=== PATIENT | male | born 1945 | race Caucasian/White ===

== ENCOUNTER 2021-11-06 10:13 | Observation (INO) | payer OTHER, MEDICARE ==
[2021-11-06] MEDS ORDERED: VANCOMYCIN 1 GM in D5W (PRE-DOCKED) 1,000 MG/250 ML IVPB ONE (11:40)
[2021-11-06] MEDS ORDERED: VANCOMYCIN 1 GRAM (PRE-DOCKED) 1,000 MG/250 ML BAG IVPB ONE ×2 (12:06→12:21)
[2021-11-06 12:19] LABS: BASO % 0.5 % (0-2.0); EOS % 1.9 % (0-4.5); HEMATOCRIT 37.6 % (35.4-49); HEMOGLOBIN 12.3 GM/dL (11.7-16.9); LYMPH % 27.9 % (8-40); MCH 29.6 pg (25.7-33.7); MCHC 32.8 g/dl (32.0-35.9); MEAN CELL VOLUME 90.3 fl (80-96); MEAN PLT VOLUME 6.7 fl (7.5-11.1); NEUT % 60.7 % (42.8-82.8); PLATELET COUNT 189 10^3/uL (134-434); RBC 4.16 M/mm3 (4.00-5.60); RDW 14.2 % (11.9-15.9); WHITE BLOOD COUNT 3.9 K/mm3 (4.0-10.0)
[2021-11-06] MEDS ORDERED: CLINDAMYCIN 600MG PREMIX IVPB 600 MG/50 ML BAG IVPB ONE ×3 (12:35→18:13)
[2021-11-06 12:38] LABS: ALBUMIN 3.4 g/dl (3.4-5.0); CALCIUM 8.7 mg/dL (8.5-10.1)
[2021-11-06 12:39] LABS: BLOOD UREA NITROGEN 15.8 mg/dL (7-18)
[2021-11-06 12:42] LABS: CREATININE 0.9 mg/dL (0.55-1.3); TOT PROT 7.3 g/dl (6.4-8.2)
[2021-11-06 12:44] LABS: BILIRUBIN,TOTAL 0.4 mg/dL (0.2-1)
[2021-11-06] MEDS ORDERED: BISACODYL 10 MG SUPP.RECT PR PRN (16:38)
[2021-11-06] MEDS ORDERED: POLYETHYLENE GLYCOL (HEALTHYLAX) 3350 17 GM PACKET PO PRN (16:42)
[2021-11-06] MEDS ORDERED: DOCUSATE SODIUM 100 MG CAPSULE (FP) PO PRN (17:46)
[2021-11-06] MEDS ORDERED: WARFARIN NA 1 MG TABLET ONE (18:13)
[2021-11-06] MEDS: WARFARIN NA 3 MG TABLET PO SCH (19:00)
[2021-11-06] MEDS: CLINDAMYCIN 600MG PREMIX IVPB 600 MG/50 ML BAG IVPB SCH (19:00)
[2021-11-06 20:38] LABS: INR 1.58 (0.83-1.09); PROTHROMBIN TIME (PATIENT) 18.6 SEC (9.7-13.0)
[2021-11-06 21:02] VITALS: BMI 29.3
[2021-11-07] MEDS: CLINDAMYCIN 600MG PREMIX IVPB 600 MG/50 ML BAG IVPB SCH ×3 (02:04→17:08)
[2021-11-07] MEDS ORDERED: MUPIROCIN 2% TOPICAL OINTMENT 22 GM TUBE TP SCH (10:00)
[2021-11-07 10:13] LABS: BASO % 0.4 % (0-2.0); EOS % 3.2 % (0-4.5); HEMATOCRIT 38.7 % (35.4-49); HEMOGLOBIN 12.5 GM/dL (11.7-16.9); LYMPH % 45.1 % (8-40); MCH 29.7 pg (25.7-33.7); MCHC 32.3 g/dl (32.0-35.9); MEAN CELL VOLUME 92.1 fl (80-96); MEAN PLT VOLUME 7.2 fl (7.5-11.1); MONO % 11.4 % (3.8-10.2); NEUT % 39.9 % (42.8-82.8); PLATELET COUNT 172 10^3/uL (134-434); RDW 14.1 % (11.9-15.9); WHITE BLOOD COUNT 3.6 K/mm3 (4.0-10.0)
[2021-11-07 10:19] LABS: INR 1.77 (0.83-1.09); PROTHROMBIN TIME (PATIENT) 19.9 SEC (9.7-13.0)
[2021-11-07 10:36] LABS: CALCIUM 8.7 mg/dL (8.5-10.1)
[2021-11-07 10:38] LABS: ALBUMIN 3.2 g/dl (3.4-5.0); BLOOD UREA NITROGEN 16.3 mg/dL (7-18)
[2021-11-07 10:41] LABS: CREATININE 0.9 mg/dL (0.55-1.3)
[2021-11-07 10:42] LABS: BILIRUBIN,TOTAL 0.6 mg/dL (0.2-1); TOT PROT 6.9 g/dl (6.4-8.2)
[2021-11-07] MEDS: WARFARIN NA 3 MG TABLET PO SCH (17:07)
[2021-11-07] MEDS: MUPIROCIN CA 2% TOPICAL CREAM 15 GM TUBE TP SCH ×2 (17:15→22:34)
[2021-11-08] MEDS: CLINDAMYCIN 600MG PREMIX IVPB 600 MG/50 ML BAG IVPB SCH ×3 (01:06→17:22)
[2021-11-08] MEDS ORDERED: ACETAMINOPHEN 325 MG TABLET (FP) PO PRN (03:05)
[2021-11-08] MEDS: MUPIROCIN CA 2% TOPICAL CREAM 15 GM TUBE TP SCH ×3 (06:12→21:56)
[2021-11-08 12:06] LABS: INR 1.83 (0.83-1.09); PROTHROMBIN TIME (PATIENT) 21.5 SEC (9.7-13.0)
[2021-11-08 12:14] LABS: BASO % 0.6 % (0-2.0); EOS % 3.7 % (0-4.5); HEMATOCRIT 38.3 % (35.4-49); HEMOGLOBIN 12.9 GM/dL (11.7-16.9); LYMPH % 34.3 % (8-40); MCH 30.5 pg (25.7-33.7); MCHC 33.7 g/dl (32.0-35.9); MEAN CELL VOLUME 90.6 fl (80-96); MEAN PLT VOLUME 7.2 fl (7.5-11.1); MONO % 12.6 % (3.8-10.2); NEUT % 48.8 % (42.8-82.8); PLATELET COUNT 174 10^3/uL (134-434); RBC 4.23 M/mm3 (4.00-5.60); WHITE BLOOD COUNT 3.5 K/mm3 (4.0-10.0)
[2021-11-08 12:22] LABS: CALCIUM 8.5 mg/dL (8.5-10.1)
[2021-11-08] MEDS: WARFARIN NA 3 MG TABLET PO SCH (17:22)
[2021-11-09] MEDS: CLINDAMYCIN 600MG PREMIX IVPB 600 MG/50 ML BAG IVPB SCH ×2 (01:11→10:49)
[2021-11-09] MEDS: MUPIROCIN CA 2% TOPICAL CREAM 15 GM TUBE TP SCH ×3 (05:51→21:46)
[2021-11-09 09:24] LABS: HEMATOCRIT 37.7 % (35.4-49); HEMOGLOBIN 12.5 GM/dL (11.7-16.9); MCH 30.2 pg (25.7-33.7); MCHC 33.2 g/dl (32.0-35.9); MEAN CELL VOLUME 91.2 fl (80-96); PLATELET COUNT 177 10^3/uL (134-434); RBC 4.13 M/mm3 (4.00-5.60); RDW 13.9 % (11.9-15.9)
[2021-11-09 10:09] LABS: CALCIUM 8.6 mg/dL (8.5-10.1)
[2021-11-09 10:10] LABS: BLOOD UREA NITROGEN 17.2 mg/dL (7-18)
[2021-11-09] MEDS: NYSTATIN 100,000 UNIT/GM TOPICAL CREAM 15 GM TUBE TP SCH (17:45)
[2021-11-09] MEDS: WARFARIN NA 3 MG TABLET PO SCH (17:52)
[2021-11-10] MEDS: NYSTATIN 100,000 UNIT/GM TOPICAL CREAM 15 GM TUBE TP SCH ×2 (06:26→09:43)
[2021-11-10] MEDS: MUPIROCIN CA 2% TOPICAL CREAM 15 GM TUBE TP SCH (06:27)
[2021-11-10] MEDS ORDERED: PT OWN MED DRAWER 7, Y5N ONE (09:31)
[2021-11-10 09:43] LABS: HEMATOCRIT 41.3 % (35.4-49); HEMOGLOBIN 13.5 GM/dL (11.7-16.9); MCH 29.8 pg (25.7-33.7); MCHC 32.6 g/dl (32.0-35.9); MEAN CELL VOLUME 91.5 fl (80-96); PLATELET COUNT 193 10^3/uL (134-434); RBC 4.51 M/mm3 (4.00-5.60); WHITE BLOOD COUNT 4.1 K/mm3 (4.0-10.0)
[2021-11-10 09:54] VITALS: BP 104/66; PULSE 79; TEMP 98.9
[2021-11-10 10:07] LABS: CALCIUM 9.1 mg/dL (8.5-10.1)
[2021-11-10 10:08] LABS: ALBUMIN 3.4 g/dl (3.4-5.0); BLOOD UREA NITROGEN 18.9 mg/dL (7-18); MAGNESIUM 2.1 mg/dL (1.8-2.4)
[2021-11-10 10:12] LABS: TOT PROT 7.4 g/dl (6.4-8.2)
[2021-11-10 10:13] LABS: BILIRUBIN,TOTAL 0.4 mg/dL (0.2-1)
== END 2021-11-10 11:59 | disposition home or self-care (01) ==
LOC: JER 10:13 → JERBED 15:17 → INTOOBSV 15:17 → J5S 20:23
PROVIDERS: ADMIT Internal Medicine; ATTEND Internal Medicine
DX: R62.50 Unspecified lack of expected normal physiological development in childhood (principal); I73.9 Peripheral vascular disease, unspecified; I83.019 Varicose veins of right lower extremity with ulcer of unspecified site; K64.9 Unspecified hemorrhoids; Z86.718 Personal history of other venous thrombosis and embolism; Z79.01 Long term (current) use of anticoagulants; R20.8 Other disturbances of skin sensation; L03.90 Cellulitis, unspecified; I89.0 Lymphedema, not elsewhere classified
CPT/HCPCS: 36415; 71045-TC-FY; 76882-TC-RT-FY; 80048; 80053; 83735; 84100; 85025; 85027; 85610; 87040; 93005; 93010; 93971-TC; 96365; 96366; 96375; 99285-25; C9803; G0378; G0463-25; U0003; U0005

== ENCOUNTER 2022-08-07 12:44 | Emergency (ER) | payer OTHER, MEDICARE ==
[2022-08-07 12:50] VITALS: BP 162/89; PULSE 67; RESP 18; TEMP 98.2; BMI 29.0
[2022-08-07] MEDS ORDERED: ACETAMINOPHEN 1000 MG/100 ML BAG IVPB ONE (13:43)
[2022-08-07] MEDS ORDERED: ACETAMINOPHEN INJECTION 100 ML IVPB ONE (13:46)
[2022-08-07 14:17] LABS: BASO % 0.6 % (0-2.0); EOS % 2.7 % (0-4.5); HEMATOCRIT 38.4 % (35.4-49); HEMOGLOBIN 12.6 GM/dL (11.7-16.9); LYMPH % 29.7 % (8-40); MCH 29.7 pg (25.7-33.7); MEAN CELL VOLUME 90.2 fl (80-96); MEAN PLT VOLUME 6.4 fl (7.5-11.1); MONO % 10.1 % (3.8-10.2); NEUT % 56.9 % (42.8-82.8); PLATELET COUNT 193 10^3/uL (134-434); RBC 4.25 M/mm3 (4.00-5.60); RDW 14.8 % (11.9-15.9); WHITE BLOOD COUNT 4.3 K/mm3 (4.0-10.0)
[2022-08-07 14:28] LABS: ACTIVATED PTT 34.6 SECONDS (25.2-36.5); INR 1.19 (0.83-1.09); PROTHROMBIN TIME (PATIENT) 13.7 SEC (9.7-13.0)
[2022-08-07 14:36] LABS: CALCIUM 9.1 mg/dL (8.5-10.1)
[2022-08-07 14:37] LABS: ALBUMIN 3.4 g/dl (3.4-5.0); BLOOD UREA NITROGEN 14.9 mg/dL (7-18)
[2022-08-07 14:40] LABS: CREATININE 0.8 mg/dL (0.55-1.3)
[2022-08-07 14:42] LABS: BILIRUBIN,TOTAL 0.5 mg/dL (0.2-1); TOT PROT 7.2 g/dl (6.4-8.2)
[2022-08-07 19:08] LABS: URINE APPEARANCE CLEAR; URINE BILIRUBIN NEGATIVE (NEGATIVE); URINE COLOR YELLOW; URINE GLUCOSE (UA) NEGATIVE (NEGATIVE); URINE KETONE NEGATIVE (NEGATIVE); URINE LEUK ESTERASE NEGATIVE (NEGATIVE); URINE NITRITE NEGATIVE (NEGATIVE); URINE PROTEIN NEGATIVE (NEGATIVE)
== END 2022-08-07 17:55 | disposition left against medical advice (07) ==
LOC: JER 12:44
PROC: 3E0333Z Introduction of Anti-inflammatory into Peripheral Vein, Percutaneous Approach (ICD-10-PCS; principal; 2022-08-07)
DX: R10.2 Pelvic and perineal pain (principal)
CPT/HCPCS: 36415; 80053; 81003; 85025; 85610; 85730; 87086; 93971-TC; 99284-25